=== PATIENT | female | born 1970 | race African-American/Black ===

== ENCOUNTER 2020-08-22 21:48 | Emergency (ER) | payer MEDICARE, SELFPAY ==
--- NOTE | ~2020-08-22 | XR_ITS ---
EXAMINATION: XR forearm LT 2V EXAM DATE: 08/22/2020 22:21 INDICATION: Dog bite. TECHNIQUE: Left forearm frontal and lateral projections obtained and reviewed. There is no prior candi dy for comparison. FINDINGS: There are no acute left forearm fractures or dislocations identified. There is no subcutan eous gas. The soft tissue is unremarkable. There are no radiopaque foreign bodies. IMPRESSION: 1. Unremarkable left forearm exam. Reviewed, dictated and finalized at location G.
[2020-08-22 21:56] VITALS: BP 154/88; PULSE 83; RESP 18; TEMP 37; O2SAT 95
--- NOTE | 2020-08-22 22:02 | ED.ANIMALBIT ---
HPI - Animal Bite General Chief Complaint: Animal Bite Stated Complaint: dog bite Time Seen by Provider: 08/22/20 21:57 Source: patient Mode of arrival: ambulatory Limitations: no limitations History of Present Illness HPI narrative: This patient is a 49 year old female with history of diabetes mellitus who presents for evaluation of wounds from a dog bite. She states yesterday her daughter's pit bull bit her on her left fore arm. She reports the dog is up to date on his immunizations. She has been keep with wound clean and applying antibiotic ointments. She has multiple puncture wounds from the dog. She reports left arm soreness. She denies any focal weakness, numbness or tingling. Related Data Allergies Allergy/AdvReac Type Severity Reaction Status Date / Time No Known Allergies Allergy Verified 08/22/20 22:07 Review of Systems Review of Systems: All systems reviewed & are unremarkable except as noted in HPI and below Constitutional: Constitutional: Denies chills and Denies fever(s) Gastrointestinal: Gastrointestinal: Denies nausea and Denies vomiting Musculoskeletal: Musculoskeletal: Reports muscle cramps Neurologic: Denies focal weakness and Denies numbness [facility] Past Medical History Medical History (Updated 08/23/20 @ 00:00 by Background Daemon) Diabetes mellitus Exam Const: General: no acute distress and alert Orientation/consciousness: patient oriented x3 Eyes: EOM: EOMs intact bilaterally Resp: Effort & Inspection: normal respiratory effort Skin: Wounds: wounds noted Neuro: General: patient oriented x3 and moves all extremities Extrem: Other: left forearm with multiple puncture wounds, no bleeding or drainage. There is surrounding ecchymosis to left forearm with mild ttp Psych: Mental Status: mental status grossly normal Affect: normal affect Course Reevaluation(s) Reevaluation #1: I have discussed management of patient with antibiotics and she was given a tetanus Date: 08/22/20 Time: 22:51 Vital Signs Vital signs: Vital Signs Temperature 98.6 F 08/22/20 21:56 Pulse Rate 83 08/22/20 21:56 Respiratory Rate 18 08/22/20 21:56 Blood Pressure 154/88 H 08/22/20 21:56 Pulse Oximetry 95 08/22/20 21:56 Temperature 98.6 F 08/22/20 21:56 Pulse Rate 83 08/22/20 21:56 Respiratory Rate 18 08/22/20 21:56 Blood Pressure 154/88 H 08/22/20 21:56 Pulse Oximetry 95 08/22/20 21:56 MDM - Animal Bite Imaging Data Radiologist's impression: ITS Impressions Forearm X-Ray 08/22/20 22:29 IMPRESSION: 1. Unremarkable left forearm exam. Discharge Plan Discharge Clinical Impression: Puncture wound of forearm, left, Bite by animal Patient Disposition: Home, Self-Care Condition: Stable Instructions: Antibiotic Form, Animal Bite (ED), Acute Wounds (ED) Additional Instructions: Today you were evaluated for wounds from a dog bite. Keep your wounds clean with soap and water. Watch for signs of an infection. Take antibiotics to completion. Prescriptions: New amoxicillin-pot clavulanate [Augmentin] 875-125 mg tablet 1 tablet PO Q12H Qty: 20 RF: 0 fluconazole [Diflucan] 150 mg tablet 150 mg PO ONCE Qty: 1 RF: 0 Follow-up/Referrals: PHYSICIAN NOT ON STAFF,NONSTAFF [Primary Care Provider] -
[2020-08-22] MEDS: AMOXICILLIN/CLAVULANATE K 875-125 MG TAB 1 TABLET PO (22:20)
[2020-08-22] MEDS: IBUPROFEN 600 MG TABLET PO (22:20)
[2020-08-22] MEDS: TETANUS,DIPHTHERIA,AC PERTUSSIS ADULT (0.5 ML) BOOSTRIX IM (22:21)
== END 2020-08-22 23:04 | disposition home or self-care (01) ==
PROVIDERS: Emergency Provider General Practice
DX: S51.852A Open bite of left forearm, initial encounter (principal); E11.9 Type 2 diabetes mellitus without complications; Z23 Encounter for immunization; W54.0XXA Bitten by dog, initial encounter
CPT/HCPCS: 73090; 90471; 90715; 99283; A9270

== ENCOUNTER 2021-04-28 13:27 | Emergency (ER) | payer MEDICARE, SELFPAY ==
[2021-04-28 13:40] VITALS: BP 147/84; PULSE 66; RESP 16; TEMP 36.4; O2SAT 99
--- NOTE | 2021-04-28 14:15 | ED.WOUNDLAC ---
HPI - Wound/Laceration General Chief Complaint: Wound/Laceration Stated Complaint: dog bite Time Seen by Provider: 04/28/21 13:51 Source: patient Mode of arrival: ambulatory Limitations: no limitations History of Present Illness HPI narrative: This is a 50 year old female that presents to the ER for dog bite sustained just prior to arrival. Reports her dog bit her. The dog is up to date on vaccinations. She is up to date on tetanus. Reports superficial abrasions to the right forearm. Denies decreased ROM or numbness. Related Data Home Medications Medication Instructions Recorded Confirmed atorvastatin 04/28/21 insulin detemir U-100 [Levemir SUBCUT 04/28/21 U-100 Insulin] metformin mg 04/28/21 Allergies Allergy/AdvReac Type Severity Reaction Status Date / Time No Known Allergies Allergy Verified 04/28/21 13:40 Review of Systems Review of Systems: Narrative: CONSTITUTIONAL: Denies fever SKIN: Reports laceration All systems reviewed & are unremarkable except as noted in HPI and below PMFSH Past Medical History Medical History (Updated 04/28/21 @ 14:18 by Renée Matthews PA-C) Diabetes mellitus History of hyperlipidemia Social History Social History Gender identity (if verbalized by the patient): Female Exam Narrative: Exam Narrative: GENERAL: Well-appearing, well-nourished, and in no acute distress. HEAD: Normocephalic, atraumatic. EYES: EOMI. EXTREMITIES: Normal range of motion. No edema or obvious deformity. Two small (1cm) linear superficial lacerations to the right forearm SKIN: Warm, dry, no rash. NEURO: No focal deficits. Alert and oriented x3. PSYCH: Normal mood and affect Course Vital Signs Vital signs: Vital Signs Temperature 97.6 F 04/28/21 13:40 Pulse Rate 66 04/28/21 13:40 Respiratory Rate 16 04/28/21 13:40 Blood Pressure 147/84 H 04/28/21 13:40 Pulse Oximetry 99 04/28/21 13:40 Temperature 97.6 F 04/28/21 13:40 Pulse Rate 66 04/28/21 13:40 Respiratory Rate 16 04/28/21 13:40 Blood Pressure 147/84 H 04/28/21 13:40 Pulse Oximetry 99 04/28/21 13:40 MDM - Wound/Laceration MDM Narrative Medical decision making narrative: Patient presents the emergency department for dog bite sustained to his prior to arrival. This was her dog, which is up-to-date on its immunizations. Patient is up-to-date on tetanus. Wounds were irrigated and covered with bandages. They are fairly superficial. She was educated on wound care. Will be started on Augmentin. Refused x-ray of the forearm. She was given warnings to return to the ER Critical Care Time Critical Care Time Critical Care Time: No Discharge Plan Discharge Clinical Impression: Dog bite of forearm Qualifiers: Encounter type: initial encounter Laterality: right Qualified Code(s): S51.851A - Open bite of right forearm, initial encounter Patient Disposition: Home, Self-Care Condition: Stable Instructions: Antibiotic Form, Animal Bite (ED) Additional Instructions: Return to the emergency department if you experience fever, redness or swelling of your wound, abnormal drainage from your wound, or any other symptoms that are concerning to you. Apply antibiotic ointment daily. Do not soak the wound. Clean with mild soap and water daily. Take oral antibiotic as prescribed Follow-up with your primary care doctor for wound check Prescriptions: New amoxicillin-pot clavulanate 875-125 mg tablet 1 tablet PO Q12H 5 Days Qty: 10 RF: 0 No Action atorvastatin 40 mg tablet RF: 0 metformin 1,000 mg tablet RF: 0 Levemir U-100 Insulin 100 unit/mL solution SUBCUT RF: 0 Follow-up/Referrals: PHYSICIAN,LEARNING SUPPORT TEACHER [Primary Care Provider] -
[2021-04-28] MEDS: FLUCONAZOLE 150 MG TABLET PO (14:24)
== END 2021-04-28 14:29 | disposition home or self-care (01) ==
PROVIDERS: Emergency Provider Emergency Medicine
DX: S51.851A Open bite of right forearm, initial encounter (principal); E11.9 Type 2 diabetes mellitus without complications; E78.5 Hyperlipidemia, unspecified; W54.0XXA Bitten by dog, initial encounter; Z79.4 Long term (current) use of insulin
CPT/HCPCS: 99283; A9270

== ENCOUNTER 2021-09-12 09:45 | Outpatient (CLI) | payer MEDICARE, SELFPAY ==
--- NOTE | ~2021-09-12 | MM_ITS ---
EXAMINATION: MM screening otilio BI w [facility] HISTORY: Screening TECHNIQUE: Craniocaudal and mediolateral oblique 3-D tomosynthesis images were obtained and synthetic 2-D images were generated. CAD analysis was submitted and interpreted. COMPARISON: No prior mammogram is available for comparison at this institution. BREAST PARENCHYMAL COMPOSITION: There are scattered areas of fibroglandular density. FINDINGS: There are unremarkable. Bilateral intramammary and axillary lymph nodes. There is no eviden ce of suspicious mass, calcification, or architectural distortion to suggest malignancy in either viri ast. There has been no suspicious interval change. IMPRESSION: 1. No mammographic evidence of malignancy. 2. Recommend routine screening mammography in one year. BI-RADS Category 1: Negative Reviewed, dictated and finalized at location A.
== END 2021-09-12 09:46 | disposition home or self-care (01) ==
LOC: ANHIMG 09:47
PROVIDERS: PCP Internal Medicine; Visit Provider Internal Medicine
DX: Z12.31 Encounter for screening mammogram for malignant neoplasm of breast (principal)
CPT/HCPCS: 77063; 77067

== ENCOUNTER 2022-08-12 02:15 | Day surgery (SDC) | payer MEDICARE, SELFPAY ==
[2022-08-05 13:03] VITALS: BMI 32.1
[2022-08-12 12:35] VITALS: BP 141/86; PULSE 90; RESP 18; TEMP 36.4; O2SAT 99
[2022-08-12] MEDS: LACTATED RINGERS 1,000 ML 150 ML IV CONT (12:39)
--- NOTE | 2022-08-12 12:46 | WPDANESEPPF ---
Anes - Initial Pre Proc Eval Procedure: Operation Date: 08/12/22 13:30 Proposed Procedures p Screening Colonoscopy - Yves Bryant MD Date/Time: 08/12/22 12:46 Surgeon: Yves Bryant MD Pre Op Diagnosis: neoplasm screening Patient Data Age: 51 Gender: F Height: 1.73 m Weight: 95.5 kg Last Vital Signs Temp 97.6 F 08/12/22 12:35 Pulse 90 08/12/22 12:35 Resp 18 08/12/22 12:35 BP 141/86 H 08/12/22 12:35 Pulse Ox 99 08/12/22 12:35 O2 Del Method Room Air 08/12/22 12:35 Allergies Allergy/AdvReac Type Severity Reaction Status Date / Time No Known Allergies Allergy Verified 08/05/22 13:03 Home Medications Medication Instructions Recorded Confirmed Type lancets 30 gauge (OneTouch Delica #200 ea 08/19/21 03/10/22 Rx Lancets) blood sugar diagnostic (OneTouch #100 ea 09/05/21 03/10/22 Rx Verio test strips) insulin syringe-needle U-100 1 mL #100 ea 01/28/22 03/10/22 Rx 31 gauge x 5/16 (BD Insulin Syringe Ultra-Fine) atorvastatin 80 mg tablet 80 mg PO DAILY #90 tabs 01/30/22 08/05/22 Rx metformin 500 mg tablet,extended 1,000 mg PO BID #360 tabs 04/08/22 08/05/22 Rx release 24 hr omeprazole 40 mg capsule,delayed 40 mg PO DAILY PRN Acid Reflux 08/05/22 08/05/22 History release Patient hx anesthesia problems: none Family hx anesthesia problems: none Results Review: All pre-operative results and documents have been reviewed as part of the pre-operative evaluation. [facility] Past Medical History Medical History (Updated 08/04/22 @ 16:24 by Amor Kay DO) Abdominal seizure Anemia Breast lump Diabetes Excessive thirst Hair changes History of hyperlipidemia Hot flashes HPV test positive Numbness Syphilis Urine incontinence Surgical History Surgical History H/O lumpectomy 2017 History of endometrial ablation Family History Family History Father Lung cancer Grandparent Heart disease Mother Thyroid disorder Social History Social History Smoking packs per day: 0.5 Smoking cigarettes per day: 10.0 Years smoked: 25 Smoking pack-years: 12.50 Smoking status: Current every day smoker Tobacco type: cigarettes Second hand tobacco smoke exposure: No Alcohol intake: never Substance use: never Substance use type: does not use Living arrangements: with family Gender identity (if verbalized by the patient): Female Spiritual care concerns: No Anes - Eval Final PreProcedure Day of Procedure 08/12/22 12:46 Patient weight: obese Heart: regular rate and rhythm Lungs: clear to auscultation Airway: Mallampati scale class II Neurological: alert and oriented Last oral intake: >/= 8 hours ASA classification: III Emergent: no Anesthetic plan: proceed Anesthesia type and monitoring: general GIVS and standard monitoring Results Review: All pre-operative results and documents have been reviewed as part of the pre-operative evaluation. Informed Consent: The patient's anesthetic plan and its attendant risks and benefits were discussed with the patient/family/POA. Questions were solicited and answers provided to the satisfaction of the patient/family/POA.
[2022-08-12 12:53] LABS: Glucose Point of Care 163 mg/dl (65-105)
--- NOTE | 2022-08-12 13:02 | PM.HPGS ---
History of Present Illness History of Present Illness Consent: Risks, benefits, and alternatives have been discussed and questions answered. Patient agrees to proceed with procedure. Chief complaint: neoplasm screening Narrative: Abbie Cox is a 51 year old female here for first screening colonoscopy Review of Systems Constitutional: Constitutional: Denies headache(s) and Denies weakness Eyes: Eyes: Denies blurry vision ENT: Reports Normal hearing present, Denies headache(s) and Denies neck pain Cardiovascular: Cardiovascular: Denies chest pain and Denies dyspnea Respiratory: Respiratory: Denies dyspnea Gastrointestinal: Gastrointestinal: Reports no additional gastrointestinal complaints Genitourinary: Genitourinary: Denies dysuria Musculoskeletal: Musculoskeletal: Denies neck pain Integumentary/Breasts: Skin/Breast: Denies dry skin Neurologic: Reports Normal hearing present, Denies headache(s) and Denies weakness Psychiatric: Psychiatric: Denies anxiety Endocrine: Endocrine: Denies change in body appearance Hematologic/Lymphatic: Hematologic/Lymphatic: Denies easy bleeding Allergic/Immunologic: Allergic/Immunologic: Denies urticaria PMFSH Past Medical History Medical History (Updated 08/04/22 @ 16:24 by Amor Kay DO) Abdominal seizure Anemia Breast lump Diabetes Excessive thirst Hair changes History of hyperlipidemia Hot flashes HPV test positive Numbness Syphilis Urine incontinence Surgical History Surgical History H/O lumpectomy 2017 History of endometrial ablation Family History Family History Father Lung cancer Grandparent Heart disease Mother Thyroid disorder Social History Social History Smoking packs per day: 0.5 Smoking cigarettes per day: 10.0 Years smoked: 25 Smoking pack-years: 12.50 Smoking status: Current every day smoker Tobacco type: cigarettes Second hand tobacco smoke exposure: No Alcohol intake: never Substance use: never Substance use type: does not use Living arrangements: with family Gender identity (if verbalized by the patient): Female Spiritual care concerns: No Meds Home Medications and Allergies Home Medications Medication Instructions Recorded Confirmed Type lancets 30 gauge (OneTouch Delica #200 ea 08/19/21 03/10/22 Rx Lancets) blood sugar diagnostic (OneTouch #100 ea 09/05/21 03/10/22 Rx Verio test strips) insulin syringe-needle U-100 1 mL #100 ea 01/28/22 03/10/22 Rx 31 gauge x 5/16 (BD Insulin Syringe Ultra-Fine) atorvastatin 80 mg tablet 80 mg PO DAILY #90 tabs 01/30/22 08/05/22 Rx metformin 500 mg tablet,extended 1,000 mg PO BID #360 tabs 04/08/22 08/05/22 Rx release 24 hr omeprazole 40 mg capsule,delayed 40 mg PO DAILY PRN Acid Reflux 08/05/22 08/05/22 History release Allergies Allergy/AdvReac Type Severity Reaction Status Date / Time No Known Allergies Allergy Verified 08/05/22 13:03 Vital Signs Vital Signs - 24 hr 08/12/22 12:35 Temperature 97.6 F Pulse Rate 90 Respiratory Rate 18 Blood Pressure 141/86 H Pulse Oximetry 99 Oxygen Delivery Room Air Exam Const: General: comfortable and no acute distress HENMT: Face/Nose/Sinus: Normal nares present Eyes: General: appearance normal, both eyes and all related structures Neck: Neck: no JVD Resp: Auscultation: clear to auscultation bilaterally Cardio: Rate: regular rate Rhythm: regular rhythm GI: Inspection: non-distended GI Palp: Yes Soft to palpation Skin: General skin exam: normal color Neuro: General: gait normal Speech: normal speech Extrem: General: normal to inspection Psych: Mental Status: mental status grossly normal Assessment and Plan Assessment and plan (1) Encounter for screening colonosco
[2022-08-12 13:23] VITALS: BP 111/75; PULSE 87; RESP 20; O2SAT 98
[2022-08-12 13:33] VITALS: BP 129/80; PULSE 75; RESP 21; O2SAT 99
[2022-08-12 13:43] VITALS: BP 134/88; PULSE 76; RESP 22; O2SAT 100
== END 2022-08-12 14:09 | disposition home or self-care (01) ==
PROVIDERS: PCP Internal Medicine; Visit Provider Internal Medicine Gastroenterology
PROC: 0DJD8ZZ Inspection of Lower Intestinal Tract, Via Natural or Artificial Opening Endoscopic (ICD-10-PCS; CPT 45378; principal; 2022-08-12 13:30)
DX: Z12.11 Encounter for screening for malignant neoplasm of colon (principal); K64.8 Other hemorrhoids; D64.9 Anemia, unspecified; R73.03 Prediabetes; E78.5 Hyperlipidemia, unspecified; F17.210 Nicotine dependence, cigarettes, uncomplicated; Z79.4 Long term (current) use of insulin; Z79.51 Long term (current) use of inhaled steroids; E66.9 Obesity, unspecified; Z68.32 Body mass index [BMI] 32.0-32.9, adult
CPT/HCPCS: G0121; 82948; J2704; J7120

== ENCOUNTER 2022-11-18 12:50 | Outpatient (CLI) | payer MEDICARE, SELFPAY ==
[2022-11-18 13:15] LABS: Basophils Percent Auto 0.5 % (0.2-1.2); Eosinophils Absolute Auto 0.1 K/mm3 (0-0.3); Eosinophils Percent Auto 1.3 % (0-4.4); Hematocrit 35.6 % (37.0-47.0); Immature Granulocyte Absolute 0.11 K/mm3 (0.00-0.031); Immature Granulocyte Percent A 1.7 % (0-0.5); Lymphocytes Absolute Auto 1.84 K/mm3 (0.9-3.2); Lymphocytes Percent Auto 28.9 % (18.3-44.2); Mean Corpuscular HGB Conc 30.9 g/dl (32-36); Mean Corpuscular Hemoglobin 29.3 pg (26-34); Mean Corpuscular Volume 94.9 fl (80-100); Mean Platelet Volume 8.5 fl (7.4-10.4); Monocytes Absolute Auto 0.3 K/mm3 (0.1-0.6); Monocytes Percent Auto 5.3 % (2.6-8.5); Neutrophils Percent Auto 62.3 % (45.5-73.1); Platelet Count Result 352 k/mm3 (150-375); Red Blood Count 3.75 M/mm3 (4.2-5.4); Red Cell Distribution Width 12.6 % (11.5-14.5); White Blood Count 6.4 K/mm3 (4.5-10.0)
[2022-11-18 13:32] LABS: Alanine Aminotransferase 27 U/L (6-35); Albumin Level 3.9 g/dL (3.5-5.1); Alkaline Phosphatase 68 U/L (38-126); Anion Gap 4 mmol/L (8-16); Aspartate Amino Transferase 22 U/L (14-36); Bilirubin,Total 0.6 mg/dL (0.2-1.3); Blood Urea Nitrogen 9 mg/dL (7-17); Calcium 9.1 mg/dL (8.4-10.2); Carbon Dioxide 27 mmol/L (22-30); Chloride 106 mmol/L (98-107); Estimated Glomerular Filt Rate > 60; Glucose 248 mg/dL (65-110); Potassium 4.1 mmol/L (3.4-5.0); Sodium 137 mmol/L (137-145)
== END 2022-11-18 12:51 | disposition home or self-care (01) ==
PROVIDERS: PCP Internal Medicine
DX: Z01.818 Encounter for other preprocedural examination (principal)
CPT/HCPCS: 36415; 80053; 85025

== ENCOUNTER 2022-12-22 15:56 | Outpatient (CLI) | payer MEDICARE, SELFPAY ==
--- NOTE | ~2022-12-22 | MM_ITS ---
EXAMINATION: MM screening otilio BI w [facility] HISTORY: Screening mammogram TECHNIQUE: Craniocaudal and mediolateral oblique 3-D tomosynthesis images were obtained and synthetic 2-D images were generated. CAD analysis was submitted and interpreted. COMPARISON: 09/2021 bilateral screening mammogram BREAST PARENCHYMAL COMPOSITION: There are scattered areas of fibroglandular density. FINDINGS: There is no evidence of suspicious mass, calcification, or architectural distortion to sugg est malignancy in either breast. There has been no suspicious interval change. IMPRESSION: 1. No mammographic evidence of malignancy. 2. Recommend routine screening mammography in one year. BI-RADS Category 1: Negative Reviewed, dictated and finalized at location A. [employer]
== END 2022-12-22 15:57 | disposition home or self-care (01) ==
LOC: ANHIMG 15:57
PROVIDERS: PCP Internal Medicine; Visit Provider Student in an Organized Health Care Education/Training Program
DX: Z12.31 Encounter for screening mammogram for malignant neoplasm of breast (principal)
CPT/HCPCS: 77063; 77067

== ENCOUNTER 2023-07-23 11:36 | Emergency (ER) | payer MEDICARE, SELFPAY ==
[2023-07-23 11:51] VITALS: BP 147/92; PULSE 94; RESP 18; TEMP 36.6; O2SAT 99
--- NOTE | 2023-07-23 11:54 | ED.URI ---
HPI - URI/Sore Throat General Chief Complaint: Upper Respiratory Infection Stated Complaint: Body Aches,Cough,Runny Nose Time Seen by Provider: 07/23/23 11:55 Source: patient, RN notes reviewed and old records reviewed Mode of arrival: ambulatory Limitations: no limitations History of Present Illness HPI Narrative: 52 year old female presents to [facility] care with complaints of being exposed to COVID on Thursday with symptoms starting last night which include cough,body aches, chills and sweats,unsure if fever has not taken. Patient also reports runny nose and watery eyes and headache. Patient has not taken any OTC medications for her symptoms. Patient denies any acute dyspnea with no tachypnea, SAO2 99% on room air. MD elicited complaint: fever, cough, rhinorrhea, nasal congestion and other (headache and body aches) Onset (ago): day(s) (since last night) Pain scale (0-10): 8 Able to tolerate fluids by mouth: Yes Treatments prior to arrival: none Related Data Home Medications Medication Instructions Recorded Confirmed omeprazole 40 mg capsule,delayed 40 mg PO DAILY PRN Acid Reflux 08/05/22 07/23/23 release Allergies Allergy/AdvReac Type Severity Reaction Status Date / Time No Known Allergies Allergy Verified 07/23/23 11:59 Review of Systems Review of Systems: CONSTITUTIONAL: Reports malaise, chills, sweats, or fever. EYES: Denies visual changes, redness, or discharge. ENT: Reports rhinorrhea, congestion, sinus pain, no otalgia or sore throat. CARDIOVASCULAR: Denies chest pain, palpitations, or edema. RESPIRATORY: Reports cough.? Denies dyspnea. GASTROINTESTINAL: Denies abdominal pain, nausea, vomiting, diarrhea SKIN: Denies rash or itching. MUSCULOSKELETAL: Reports myalgia. NEUROLOGIC: Denies headache. All systems reviewed & are unremarkable except as noted in HPI and below PMFSH Past Medical History Medical History Abdominal seizure Anemia Breast lump Diabetes Excessive thirst Hair changes History of hyperlipidemia Hot flashes HPV test positive Numbness Syphilis Type 2 diabetes mellitus Urine incontinence Surgical History Surgical History H/O lumpectomy 2017 History of endometrial ablation Family History Family History Father Lung cancer Grandparent Heart disease Mother Thyroid disorder Social History Social History Smoking packs per day: 0.5 Smoking cigarettes per day: 10.0 Years smoked: 25 Smoking pack-years: 12.50 Smoking status: Current every day smoker Tobacco type: cigarettes Second hand tobacco smoke exposure: No Alcohol intake: never Substance use: never Substance use type: does not use Lack of Transportation: No Lack of Food: Never True Current Housing: I Have Housing Concerned About Future Housing: No Difficulty Paying Gas/Electric Bills: No Difficulty Paying for Meds: No Currently Unemployed: YES Education: Associate Degree Difficulty w/ Childcare or Family Care: No Living arrangements: with family Gender identity (if verbalized by the patient): Female Spiritual care concerns: No Comments At time of signature, agree with nursing past medical, surgical, social and family history. There is no relevant family history pertinent to the presenting complaint Exam Narrative: GENERAL: Well-appearing, well-nourished, and in no acute distress. HEAD: Normocephalic EYES: PERRLA, conjunctivae clear, eyes watery ENT: Nares clear, turbinates edematous and erythematous, clear discharge. Mucous membranes moist. TM pearly kirby with dull light reflex bilaterally; no tragal tenderness. Oropharynx erythematous without lesions. Tonsils not enlarged and without exudate, no drooling, no hoarseness, no desire
== END 2023-07-23 12:30 | disposition home or self-care (01) ==
PROVIDERS: Emergency Provider Registered Nurse; PCP Nurse Practitioner Family
DX: U07.1 COVID-19 (principal); F17.210 Nicotine dependence, cigarettes, uncomplicated; E11.9 Type 2 diabetes mellitus without complications; Z79.4 Long term (current) use of insulin; E78.5 Hyperlipidemia, unspecified
CPT/HCPCS: 87426; 99213; C9803; G0463

== ENCOUNTER 2023-09-08 14:20 | Outpatient (CLI) | payer MEDICARE, SELFPAY ==
--- NOTE | ~2023-09-08 | US_ITS ---
US thyroid INDICATION: Enlarged thyroid gland TECHNIQUE: Real-time sonographic images of the thyroid gland were obtained. COMPARISON: No prior studies for comparison. FINDINGS: The right thyroid lobe measures 6 x 1.9 x 2.5 cm. The left thyroid lobe measures 5.2 x 1.8 x 2.2 cm. Isthmus measures 0.65 centimeters. There is normal echotexture and echogenicity throughout the thyroid gland. No discrete nodules identified. Normal vascular flow is present. IMPRESSION: 1. Enlarged thyroid without discrete nodule or abnormal vascularity. Reviewed, dictated and finalized at location A.
== END 2023-09-08 14:21 | disposition home or self-care (01) ==
PROVIDERS: PCP Nurse Practitioner Family; Visit Provider Obstetrics & Gynecology
DX: E04.9 Nontoxic goiter, unspecified (principal)
CPT/HCPCS: 76536

== ENCOUNTER 2024-06-22 08:02 | Emergency (ER) | payer OTHER, SELFPAY ==
[2024-06-22 08:27] VITALS: BP 149/71; PULSE 87; RESP 18; TEMP 37.1; O2SAT 98
--- NOTE | 2024-06-22 08:36 | ED.URI ---
HPI - URI/Sore Throat General Chief Complaint: Upper Respiratory Infection Stated Complaint: COVID ? Time Seen by Provider: 06/22/24 08:36 Source: patient, RN notes reviewed and old records reviewed Mode of arrival: ambulatory Limitations: no limitations History of Present Illness HPI Narrative: patient presents with complaints of fever, body aches, chills, sweats, and nasal congestion. Symptoms began Yesterday. She has been taking Tylenol. She present because she is concerned about her health status, as she is diabetic. She denies any shortness of breath or chest pain. No other concerns or complaints today. Related Data Allergies Allergy/AdvReac Type Severity Reaction Status Date / Time No Known Allergies Allergy Verified 06/22/24 08:27 Review of Systems Review of Systems: All systems reviewed & are unremarkable except as noted in HPI and below Constitutional: Constitutional: Reports no additional constitutional complaints, Reports body ache(s), Reports chills and Reports fever(s) ENT: Reports system reviewed and no additional complaints, except as documented, Reports hoarseness, Reports nasal congestion and Reports nasal discharge Cardiovascular: Cardiovascular: Reports no additional cardiovascular complaints Respiratory: Respiratory: Reports no additional respiratory complaints Gastrointestinal: Gastrointestinal: Reports no additional gastrointestinal complaints PMFSH Past Medical History Medical History Abdominal seizure Anemia Diabetes Excessive thirst Hair changes History of hyperlipidemia Hot flashes Numbness Syphilis Type 2 diabetes mellitus Urine incontinence KIM III (vulvar intraepithelial neoplasia III) (~09/2022) Surgical History Surgical History H/O lumpectomy 2017 History of endometrial ablation Family History Family History Father Lung cancer Grandparent Heart disease Mother Thyroid disorder Social History Social History Smoking packs per day: 0.5 Smoking cigarettes per day: 10.0 Years smoked: 25 Smoking pack-years: 12.50 Smoking status: Current every day smoker Tobacco type: cigarettes Second hand tobacco smoke exposure: No Alcohol intake: never Substance use: never Substance use type: does not use Do You Feel Safe in your Home?: Yes Lack of Transportation: No Lack of Food: Never True Current Housing: I Have Housing Concerned About Future Housing: No Difficulty Paying Gas/Electric Bills: No Difficulty Paying for Meds: No Currently Unemployed: No Education: Associate Degree Difficulty w/ Childcare or Family Care: No Living arrangements: with family Gender identity (if verbalized by the patient): Female Spiritual care concerns: No Exam Const: General: cooperative, no acute distress, alert and awake Orientation/consciousness: oriented to person, oriented to place and oriented to time HENMT: Head: normal to inspection Ears: TM's normal bilaterally Mouth: Yes oropharynx normal and Yes moist mucous membranes Resp: Effort & Inspection: normal respiratory effort and able to speak in complete sentences Auscultation: clear to auscultation bilaterally, no crackles, no rales, no rhonchi and no wheezes Cardio: Palpation: normal PMI Rate: regular rate Rhythm: regular rhythm Heart sounds: S1 normal heart sound present and S2 normal heart sound present Neuro: General: oriented to person, oriented to place and oriented to time Cranial nerves: Yes CN's II-XII intact bilaterally Psych: Appearance: grossly normal Thought process: Normal thought process present Insight: Good insight present (Psych) Judgement: Good judgement present (Psych) Course Course Level of Care: Express Care Visit Vital Signs Vital sign
== END 2024-06-22 09:05 | disposition home or self-care (01) ==
PROVIDERS: Emergency Provider Nurse Practitioner Family; PCP Emergency Medicine
DX: U07.1 COVID-19 (principal); R03.0 Elevated blood-pressure reading, without diagnosis of hypertension; F17.210 Nicotine dependence, cigarettes, uncomplicated; E11.9 Type 2 diabetes mellitus without complications; E78.5 Hyperlipidemia, unspecified
CPT/HCPCS: 87426; 99213; G0463